=== PATIENT | male | born 1980 | race Caucasian/White ===

== ENCOUNTER 2021-09-05 11:35 | Emergency (ER) | payer BC, SELFPAY ==
[2021-09-05] VITALS (11 sets, daily range): BP systolic 105–129; BP diastolic 68–87; PULSE 54–65; RESP 7–17; TEMP 36.8; O2SAT 100
--- NOTE | ~2021-09-05 | XR_ITS ---
EXAMINATION: XR chest 2V DATE: 09/05/2021 12:15 INDICATION: Chest pain. TECHNIQUE: Frontal and lateral views of the chest were obtained. COMPARISON: None. FINDINGS: Calcified pulmonary nodules are consistent with old granulomatous disease. No pleural effus ion or pneumothorax. The heart size is normal. IMPRESSION: 1. No acute cardiopulmonary disease. Reviewed, dictated and finalized at location A.
--- NOTE | 2021-09-05 11:37 | ECG_ITS ---
Measurements Intervals [place] Rate: 64 P: 44 MS: 119 QRS: 47 QRSD: 82 T: 41 QT: 384 QTc: 398 Interpretive Statements SINUS RHYTHM WITH SHORT MS INTERVAL MINIMAL Q WAVES- HIGH LATERAL LEADS BORDERLINE ECG Electronically Signed On 09-05-2021 11:54:24 CDT by Gil Waddell D.O.
[2021-09-05 12:10] LABS: Alanine Aminotransferase 18 U/L (6-50); Albumin Level 4.6 g/dL (3.5-5.1); Alkaline Phosphatase 92 U/L (38-126); Anion Gap 9 mmol/L (8-16); Aspartate Amino Transferase 25 U/L (17-59); Bilirubin,Total 0.7 mg/dL (0.2-1.3); Blood Urea Nitrogen 16 mg/dL (9-20); Calcium 8.6 mg/dL (8.4-10.2); Carbon Dioxide 26 mmol/L (22-30); Chloride 102 mmol/L (98-107); Estimated CRCL calculation 94 ml/min; Estimated Glomerular Filt Rate > 60; Glucose 101 mg/dL (65-110); Lipase 73 U/L (23-300); Potassium 3.7 mmol/L (3.4-5.0); Sodium 137 mmol/L (137-145)
[2021-09-05 12:11] LABS: INR 1.1; Prothrombin Time 13.8 Seconds (11.1-14.7)
[2021-09-05 12:12] LABS: Partial Thromboplastin Time 34.5 SECONDS (22.3-36.8)
[2021-09-05 12:13] LABS: Basophils Percent Auto 0.7 % (0.2-1.2); Eosinophils Absolute Auto 0.2 K/mm3 (0-0.3); Eosinophils Percent Auto 4.7 % (0-4.4); Hematocrit 43.5 % (42.0-52.0); Hemoglobin 14.7 g/dL (14.0-18.0); Immature Granulocyte Absolute 0.01 K/mm3 (0.00-0.031); Immature Granulocyte Percent A 0.2 % (0-0.5); Lymphocytes Absolute Auto 1.39 K/mm3 (0.9-3.2); Lymphocytes Percent Auto 34.2 % (18.3-44.2); Mean Corpuscular HGB Conc 33.8 g/dl (32-36); Mean Corpuscular Hemoglobin 31.5 pg (26-34); Mean Corpuscular Volume 93.1 fl (80-100); Mean Platelet Volume 9.5 fl (7.4-10.4); Monocytes Absolute Auto 0.4 K/mm3 (0.1-0.6); Monocytes Percent Auto 8.6 % (2.6-8.5); Neutrophils Absolute Auto 2.1 K/mm3 (1.3-6.7); Neutrophils Percent Auto 51.6 % (45.5-73.1); Platelet Count Result 251 k/mm3 (150-375); Red Blood Count 4.67 M/mm3 (4.6-6.20); White Blood Count 4.1 K/mm3 (4.5-10.0)
[2021-09-05 12:21] LABS: Troponin I < 0.012 ng/mL (0.000-0.034)
[2021-09-05 15:13] LABS: Troponin I < 0.012 ng/mL (0.000-0.034)
--- NOTE | 2021-09-05 15:36 | ED.CHESTPAIN ---
HPI - Chest Pain General Chief Complaint: Chest Pain Stated Complaint: lightheaded, chest pain Time Seen by Provider: 09/05/21 14:44 Source: patient and RN notes reviewed Mode of arrival: ambulatory Limitations: no limitations History of Present Illness HPI narrative: This is a 40 year old healthy male who presents for evaluation of left chest discomfort. Patient states he was at working standing when he developed left anterior chest discomfort. He reports he felt slightly lightheadedness and left arm numbness. Patient states he walked around at onset to talk to people and his symptoms were not worse with exertion. He denies radiation of his pain to his abdomen, back, , neck or arm. He denies associated nausea, vomiting. His discomfort resolved prior to coming to ER. He does not have any pain. Related Data Home Medications Medication Instructions Recorded Confirmed No Home Medications 09/05/21 09/05/21 Allergies Allergy/AdvReac Type Severity Reaction Status Date / Time No Known Allergies Allergy Verified 09/05/21 15:03 Review of Systems Review of Systems: All systems reviewed & are unremarkable except as noted in HPI and below PMFSH Past Medical History Medical History (Updated 09/05/21 @ 15:47 by Ines Yost MD) Patient denies medical problems Surgical History Surgical History (Updated 09/05/21 @ 15:45 by Ines Yost MD) No pertinent past surgical history Family History Family History (Updated 09/05/21 @ 15:45 by Ines Yost MD) Other Acute myocardial infarction Diabetes mellitus Social History Social History (Updated 09/05/21 @ 15:45 by Ines Yost MD) Smoking status: Never smoker Exam Const: General: no acute distress and alert Orientation/consciousness: patient oriented x3 Eyes: EOM: EOMs intact bilaterally Chest: Chest palpation & inspection: normal inspection of the chest Resp: Effort & Inspection: normal respiratory effort and no retractions Auscultation: clear to auscultation bilaterally Cardio: Rate: regular rate Rhythm: regular rhythm Heart sounds: no murmurs Other: equal bilateral radial pulses GI: GI Palp: Yes Soft to palpation, No Tenderness to palpation present (GI) and No Guarding due to palpation present (GI) Auscultation: normal bowel sounds Back/Spine/Pelvis: Back: no CVA tenderness Skin: General skin exam: normal color Rashes: no rashes Neuro: General: patient oriented x3, moves all extremities and CN's II-XI intact bilaterally Extrem: General: normal to inspection Psych: Mental Status: mental status grossly normal Affect: normal affect Course Reevaluation(s) Reevaluation #1: Patient presents with complaint of chest pain that has already resolved. His symptoms are atypical . He is PERC negative. Unlikely aortic etiology. I Discussed he is low risk so he will be discharged home to follow up with primary care provider. Date: 09/05/21 Time: 15:47 Vital Signs Vital signs: Vital Signs Temperature 98.2 F 09/05/21 11:52 Pulse Rate 65 09/05/21 11:52 Respiratory Rate 17 09/05/21 11:52 Blood Pressure 123/80 09/05/21 11:52 Pulse Oximetry 100 09/05/21 11:52 Temperature 98.2 F 09/05/21 11:52 Pulse Rate 57 L 09/05/21 16:31 Respiratory Rate 11 L 09/05/21 16:31 Blood Pressure 111/77 09/05/21 16:31 Pulse Oximetry 100 09/05/21 16:31 MDM - Chest Pain Lab Data Attestation: I reviewed the patient's lab results. Result diagrams: 09/05/21 11:48 09/05/21 11:48 Labs: Lab Results 09/05/21 09/05/21 09/05/21 Range/Units 11:48 11:48 11:48 WBC 4.1 L (4.5-10.0) K/mm3 RBC 4.67 (4.6-6.20) M/mm3 Hgb 14.7 (14.0-18.0) g/dL Hct 43.5 (42.0-52.0) % MCV 93.1 (80-100) fl MCH 31.5 (26-34) pg MCHC 33.8 (32-36) g/dl RDW 12.0 (11.5-14.5) % Plt Count 251 (150-375) k/mm3 MPV 9.5 (7.4-10.4) fl Immature Gran %
== END 2021-09-05 16:46 | disposition home or self-care (01) ==
PROVIDERS: Emergency Medicine; Emergency Provider General Practice; PCP Family Medicine Sports Medicine
DX: R07.89 Other chest pain (principal); R94.31 Abnormal electrocardiogram [ECG] [EKG]
CPT/HCPCS: 36415; 71046; 80053; 83690; 84484; 85025; 85610; 85730; 93005; 99284